=== PATIENT | female | born 1970 | race Caucasian/White ===

== ENCOUNTER 2024-12-17 02:19 | Inpatient (IN) | payer MEDICARE, MEDICAID ==
[~2024-12-17] VITALS: Ht 167.6 cm; Wt 68.4 kg
[2024-12-17 03:05] VITALS: PULSE 80; RESP 20; O2SAT 95
[2024-12-17] MEDS: LORazepam 2MG/ML-1ML VIAL IM ONE (03:10)
[2024-12-17] MEDS: LORazepam 2MG/ML-1ML VIAL IV ONE (03:11)
[2024-12-17] MEDS: SODIUM CHLORIDE 0.9% 1,000 ML IV ONE ×3 (03:11→05:33)
[2024-12-17 03:16] LABS: Hematocrit 41.0 % (36.0-46.0); Hemoglobin 13.7 g/dL (12.2-16.2); Mean Corpuscular Hemoglobin 30.1 pg (28.0-32.0); Mean Corpuscular Volume 90.0 fL (80.0-100.0); Nucleated Red Blood Cells % 0.1 %
[2024-12-17 03:44] LABS: Alanine Aminotransferase 17 U/L (7-40); Albumin 4.4 g/dL (3.2-4.8); Anion Gap 9 (5-15); BUN/Creatinine Ratio 16.0 (10.0-20.0); Blood Urea Nitrogen 15 mg/dL (9-23); Calcium 9.4 mg/dL (8.7-10.4); Carbon Dioxide 26 mmol/L (20-31); Chloride 99 mmol/L (98-107); Lipase 43 U/L (12-53); Magnesium 2.0 mg/dL (1.6-2.6); Potassium 4.1 mmol/L (3.5-5.1); Total Protein 8.0 g/dL (5.7-8.2)
[2024-12-17 03:45] LABS: Bilirubin, Total 0.5 mg/dL (0.2-1.0)
[2024-12-17 03:54] LABS: Alkaline Phosphatase 214 U/L (46-116); Sodium 134 mmol/L (136-145)
[2024-12-17] MEDS: ACCU-CHEK COMFORT CURVE STRIP VI STA (03:54)
[2024-12-17 03:55] LABS: Glucose 555 mg/dL (74-106)
[2024-12-17] MEDS ORDERED: DEXTROSE (50%) 50ML SYRG IV PRN ×3 (04:15→05:30)
--- NOTE | 2024-12-17 04:21 | ED.PDOC ---
History of Present Illness HPI Comments 54-year-old female, with a limited known history, is brought in by ambulance in restraints for chief complaint of altered mental status. Per EMS personnel report, law enforcement called after responding to bystanders spotting the patient screaming and displaying erratic behavior at a [employer] parking lot, this morning. Vitals were noted to have been stable and within normal limits, with the exception of the tachycardic heart rate in the 120s to 130s range and a blood glucose of 444. Patient is screaming, repeatedly, staff on leaving her alone and refusing to answer any further questions. 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 REVIEW OF SYSTEMS: General: No fever, no chills, HEENT: No neck pain, no blurred vision Cardiac: No chest pain. No palpitations. Lungs: No shortness of breath, GI: No abdominal pain, no vomiting Musculoskeletal: No joint pain , no back pain Skin: No rash, no wound Neuro: Altered mental status. No headache, no dizziness, no syncope PHYSICAL EXAM: General: Appears disheveled. Skin: Skin in warm, dry and intact without rashes or lesions. HEENT: The head is normocephalic and atraumatic. Conjunctivae are clear without exudates or hemorrhage. Sclera is non-icteric. Neck: Normal range of motion. No JVD. Cardiac: Regular rate Respiratory: No signs of respiratory distress. No Stridor. Extremities: Upper and lower extremities are atraumatic in appearance without deformity. Neurological: The patient is awake, alert and oriented x3. She is repeatedly yelling to staff on leaving her alone and refusing to answer questions. There is no facial asymmetry. Psychiatric: Appropriate mood and affect. Good judgement and insight. 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 Was a procedure done?: No Differential Dx Considerations may include: Differential diagnosis considered includes but not limited to intracranial hemorrhage, stroke, head injury, seizure, metabolic disturbance, electrolyte imbalance, infection, substance intoxication, psychiatric cause, other systemic illness, other X-Ray, Labs, Meds, VS Vital Signs Date Time Temp Pulse Resp B/P (MAP) Pulse Ox O2 Delivery O2 Flow Rate FiO2 12/17/24 04:00 88 18 112/74 (87) 95 12/17/24 03:05 80 20 95 Room Air* 0 21 12/17/24 02:36 97.9 80 20 98/52 (67) 95 97.9 12/17/24 02:31 97.6 86 24 118/70 97 97.6 Lab Test 12/17/24 05:00 12/17/24 03:54 12/17/24 03:04 12/17/24 03:03 Range/Units Urine Color Light-yellow Yellow Urine Clarity Clear Clear Urine pH 5.5 5.0-9.0 Urine Specific [place] 1.037 H 1.001-1.035 Urine Protein Negative Negative Urine Ketones Negative Negative Urine Blood Negative Negative /uL Urine Nitrite Negative Negative Urine Bilirubin Negative Negative Urine Urobilinogen Normal Negative mg/dL Urine Leukocyte Esterase Negative Negative /uL Urine RBC None seen 0 - 4 /hpf Urine Microscopic WBC 2 0-5 /HPF Urine Squamous Epithelial Cells None seen <5 /hpf Urine Bacteria None seen None Seen /hpf Urine Hyaline Casts Few 0 - 2 /lpf Urine Glucose 4+ H Normal mg/dL Urine Opiates Screen Neg NEGATIVE Urine Fentanyl Screen Neg NEGATIVE Urine Barbiturates Screen Neg NEGATIVE Urine Phencyclidine Screen Neg NEGATIVE Urine Amphetamines Screen Pos NEGATIVE Urine Benzodiazepines Screen Neg NEGATIVE Urine Cocaine Screen Neg NEGATIVE Urine Cannabinoids Screen Neg NEGATIVE POC Glucose 477 *H 70-106 mg/dl Blood Gas Specimen Type Venous Blood Gas Sample Site Vbg - n/a Blood Gas Patient Temperature 37.0 Arterial Blood Date Drawn [id number] Juan Test N/a Venous Blood pH 7.378 7.320-7.430 Venous Blood pCO2 at Patient Temp 45.2 38.0-54.0 mmHg Venous Blood pO2 at Patient Temp 38.9 23.0-48.0 mmHg Venous Blood HCO3 26.0 22.0-29.0 mmol/L Venous Blood Base Excess 0.5 -2.0-3.0 mmol/L Blood Gas Liter Flow 0.00 Blood Gas Modality Vbg - n/a Blood Gas Spontaneous Rate 22 FiO2 % 21.0 Specimen Drawn By Seun thurman rn White Blood Count 7.3 4.4-10.8 10^3/uL Red Blood Count 4.56 4.0-5.20 10^6/uL Hemoglobin 13.7 12.2-16.2 g/dL Hematocrit 41.0 36.0-46.0 % Mean Corpuscular Volume 90.0 80.0-100.0 fL Mean Corpuscular Hemoglobin 30.1 28.0-32.0 pg Mean Corpuscular Hemoglobin Concent 33.5 32.0-36.0 g/dL Red Cell Distribution Width 15.5 H 11.8-14.3 % Platelet Count 284 140-450 10^3/uL Mean Platelet Volume 7.1 6.9-10.8 fL Neutrophils (%) (Auto) 48.8 37.0-80.0 % Lymphocytes (%) (Auto) 38.6 10.0-50.0 % Monocytes (%) (Auto) 10.9 0.0-12.0 % Eosinophils (%) (Auto) 1.5 0.0-7.0 % Basophils (%) (Auto) 0.2 0.0-2.0 % Neutrophils # (Auto) 3.6 1.6-8.6 10 ^3/uL Lymphocytes # (Auto) 2.8 0.4-5.4 10 ^3/uL Monocytes # (Auto) 0.8 0-1.3 10 ^3/uL Eosinophils # (Auto) 0.1 0-0.8 10 ^3/uL Basophils # (Auto) 0 0-0.2 10 ^3/uL Nucleated Red Blood Cells 0.1 % Sodium Level 134 L 136-145 mmol/L Potassium Level 4.1 3.5-5.1 mmol/L Chloride Level 99 98-107 mmol/L Carbon Dioxide Level 26 20-31 mmol/L Anion Gap 9 5-15 Blood Urea Nitrogen 15 9-23 mg/dL Creatinine 0.94 0.550-1.02 mg/dL Glomerular Filtration Rate Calc 73 >90 mL/min BUN/Creatinine Ratio 16.0 10.0-20.0 Serum Glucose 555 *H 74-106 mg/dL Hemoglobin A1c 11.2 H <5.7 % A1C Lactic Acid Level 1.8 0.4-2.0 mmol/L Calcium Level 9.4 8.7-10.4 mg/dL Magnesium Level 2.0 1.6-2.6 mg/dL Total Bilirubin 0.5 0.2-1.0 mg/dL Aspartate Amino Transferase (AST) 24 13-40 U/L Alanine Aminotransferase (ALT) 17 7-40 U/L Alkaline Phosphatase 214 H 46-116 U/L B-Type Natriuretic Peptide 20.02 0-100 pg/mL Total Protein 8.0 5.7-8.2 g/dL Albumin 4.4 3.2-4.8 g/dL Lipase 43 12-53 U/L Plasma/Serum Blood Alcohol < 3.0 <10 mg/dL Hepatitis A IgM Antibody Negative Hepatitis B Surface Antigen Negative Negative Hepatitis B Core IgM Antibody Negative Negative Hepatitis C Antibody Negative Negative Time of 1ST Reevaluation: 03:10 Reevaluation 1ST: Unchanged Patient Education/Counseling: Treatment, Other (Need for ED observation) Family Education/Counseling: No Family Present SEPSIS Sepsis Screen Date sepsis recognized/suspect: Dec 17, 2024 Time Sepsis recognized/suspect: 030 Recent Procedure: No On Antibiotic Therapy: No Respiratory Rate >20: No Heart Rate >90: No Temp<36 C (96.8 F) or >38.3 C: No SBP <90 or MAP <65 mmHG: No New Acute Mental Status Change: Yes Is the patient on CPAP, BIPAP,: No Physician Orders Saline Lock (12/17/24 02:44) Venous Blood Gas (12/17/24 02:44) R Wrist 3+ View Xray (12/17/24 03:15) Vital Signs Date Time Temp Pulse Resp B/P (MAP) Pulse Ox O2 Delivery O2 Flow Rate FiO2 12/17/24 04:00 88 18 112/74 (87) 95 12/17/24 03:05 80 20 95 Room Air* 0 21 12/17/24 02:36 97.9 80 20 98/52 (67) 95 97.9 12/17/24 02:31 97.6 86 24 118/70 97 97.6 Laboratory Tests Test 12/17/24 03:03 Lactic Acid Level 1.8 mmol/L (0.4-2.0) White Blood Count 7.3 10^3/uL (4.4-10.8) Departure 1 Departure Time of Disposition: 05:10 Impression: Primary Impression: Altered mental status Additional Impression: Hyperglycemia Disposition: ADMITTED INPATIENT Condition: Serious Comments MDM: Patient admitted to hospitalist service for further treatment, evaluation and monitoring. Extensive evaluation was performed in attempt to identify or rule out: (See dif ferential diagnosis section) The following tests were ordered, and results were reviewed by me and discussed with patient: (See diagnostic results section) Additional information was gathered from interviewing the following independent historians: EMS personnel Decision regarding hospitalization or escalation of hospital level of care: Risk and benefits of admission for further treatment of patient's condition was considered. Due to patient's current clinical condition, high risk of decline and poor outcome if discharged and need for further inpatient management and monitoring, patient will be admitted to the hospital. Critical Care Note Critical Care Time?: No Stability Stability form required: No Heart Score Heart Score: Heart Score Response (Comments) Value History N/A 0 EKG N/A 0 Age N/A 0 Risk Factors N/A 0 Troponin N/A 0 Total 0 I personally scribed for DELONTE AMBROSIO MD ([email or web address]) on 12/17/24 at 04:21. Electronically submitted by Graeme Resendez ([email or web address]). DELONTE AMBROSIO MD Dec 17, 2024 04:21
[2024-12-17] MEDS: InsuLIN REG 1unit/0.01ml Soln (100units/ml) IV ONE (04:40)
--- NOTE | 2024-12-17 04:58 | DVH ---
CLINICAL INDICATION: Right wrist pain TECHNIQUE: 2 views XY R WRIST 3+ VIEW XRAY Comparison: None FINDINGS: No appreciable fracture or acute joint malalignment. Joint spaces are preserved. Osseous mineralizat ion is normal. Circumferential soft tissue swelling. IMPRESSION: 1. Soft tissue swelling without acute osseous finding of the right wrist, correlate with history and physical exam. If there is concern for occult fracture, follow-up radiographs recommended in - ys.
[2024-12-17 05:29] LABS: Urine Protein, UAD Negative (Negative)
[2024-12-17] MEDS ORDERED: NITROGLYCERIN 0.4 MG SL TAB SL PRN (05:30)
[2024-12-17] MEDS ORDERED: MORPHINE SULFATE INJ 2 MG/ml SYRG IV PRN (05:30)
[2024-12-17] MEDS ORDERED: ACETAMINOPHEN 325 MG TAB PO PRN (05:30)
[2024-12-17] MEDS ORDERED: DOCUSATE SOD 100 MG CAP PO PRN (05:30)
[2024-12-17] MEDS ORDERED: ONDANSETRON HCL 4 MG/2 ML VIAL IV PRN (05:30)
--- NOTE | 2024-12-17 05:30 | DVHHP2 ---
History of Present Illness Reason for Visit: Altered level of consciousness History of Present Illness The patient is a 54-year-old female unkempt with unknown past medical history presented to [facility] ED for evaluation of altered mental status. As reported by EMS, law enforcement called after responding to bystanders spotting the patient screaming and displaying erratic behavior at a [employer] parking lot, this morning. Patient is screaming, repeatedly on staff to leaving her alone and refusing to answer any further questions. 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 Patient was seen and evaluated in the ED, laboratory data shows WBC 7.3, platelets 284, sodium 134, potassium 4.1, BUN 15, creatinine 0.94, GFR 73, glucose 555, calcium 9.4, BNP 20.02, lipase 43, serum alcohol < 3.0, positive amphetamines. Head CT results pending; right wrist x-ray revealing soft tissue swelling without acute osseous finding of the right wrist, correlate with history and physical exam; if there is concern for occult fracture, follow-up radiography recommendation in 10-14 days. Please see medication orders section in the computer. On my assessment, patient remains altered, no diaphoresis, shortness of breaths, no diarrhea, nausea, vomiting, fever, no chills. Patient was admitted for further evaluation and medical management. Past Medical History Unknown Past Surgical History Unknown Family History Reviewed, noncontributory to the management of this case. Past Social History Uses amphetamines Review of Systems Constitutional: Yes: Weakness; No: Fever, Chills, Sweats, Malaise, Other Eyes: No: Pain, Vision change, Conjunctivae inflammation, Eyelid inflammation, Other, Redness ENT: No: Ear pain, Ear discharge, Nose pain, Nose discharge, Nose congestion, Mouth pain, Mouth swelling, Throat pain, Throat swelling, Other Respiratory: No: Cough, Dry, Shortness of breath, SOB with excertion, Wheezing, Hemoptysis, Pleuritic Pain, Sputum, Wheezing, Other Cardiovascular: No: Chest Pain, Palpitations, Orthopnea, Paroxysmal Noc. Dyspnea, Edema, Lt Headedness, Other Gastrointestinal: No: Nausea, Vomiting, Abdominal Pain, Diarrhea, Constipation, Melena, Hematochezia, Other Genitourinary: No Dysuria, No Frequency, No Incontinence, No Hematuria, No Retention, No Other Musculoskeletal: No: other, neck pain, shoulder pain, arm pain, back pain, hand pain, leg pain, foot pain Skin: No: Rash, Lesions, Jaundice, Bruising, Other Neurological: Confusion, Other (Altered level of consciousness); No: Weakness, Numbness, Incoordination, Change in speech, Seizures Allergies: Coded Allergies: Penicillins (Verified Allergy, Intermediate, 12/17/24) Skin reactions Medications Current Medications Medications Dose Ordered Sig/Roberto Route Start Time Stop Time Status Last Admin Dose Admin Dextrose 50 ml PRN PRN IV 12/17/24 04:15 Dextrose 50 ml PRN PRN IV 12/17/24 04:15 Exam Vital Signs Vital Signs Date Time Temp Pulse Resp B/P (MAP) Pulse Ox O2 Delivery O2 Flow Rate FiO2 12/17/24 04:00 88 18 112/74 (87) 95 12/17/24 03:05 Room Air* 0 21 12/17/24 02:36 97.9 97.9 General Appearance: Alert, No acute distress, Other (Oriented x1) HEENT: Atraumatic, PERRLA, EOMI, Mucous membr. moist/pink Respiratory: Normal air movement Cardiovascular: Regular rate, Normal S1, Normal S2, No murmurs Abdominal: Normal bowel sounds, Soft, No tenderness, No hepatospenomegaly, No masses Extremities: No clubbing, No cyanosis, No edema, Normal pulses, No tenderness/swelling Skin: No rashes, No significant lesion Neuro: Normal tone, Reflexes 2+, Other (Generalized weakness) Psych/Mental Status: Mood NL, Other (Altered mental status) Labs/Xrays Labs Test 12/17/24 05:00 12/17/24 03:54 12/17/24 03:04 12/17/24 03:03 Range/Units POC Glucose 477 *H 70-106 mg/dl Blood Gas Specimen Type Venous Blood Gas Sample Site Vbg - n/a Blood Gas Patient Temperature 37.0 Arterial Blood Date Drawn [id number] Juan Test N/a Venous Blood pH 7.378 7.320-7.430 Venous Blood pCO2 at Patient Temp 45.2 38.0-54.0 mmHg Venous Blood pO2 at Patient Temp 38.9 23.0-48.0 mmHg Venous Blood HCO3 26.0 22.0-29.0 mmol/L Venous Blood Base Excess 0.5 -2.0-3.0 mmol/L Blood Gas Liter Flow 0.00 Blood Gas Modality Vbg - n/a Blood Gas Spontaneous Rate 22 FiO2 % 21.0 Specimen Drawn By Seun thurman rn White Blood Count 7.3 4.4-10.8 10^3/uL Red Blood Count 4.56 4.0-5.20 10^6/uL Hemoglobin 13.7 12.2-16.2 g/dL Hematocrit 41.0 36.0-46.0 % Mean Corpuscular Volume 90.0 80.0-100.0 fL Mean Corpuscular Hemoglobin 30.1 28.0-32.0 pg Mean Corpuscular Hemoglobin Concent 33.5 32.0-36.0 g/dL Red Cell Distribution Width 15.5 H 11.8-14.3 % Platelet Count 284 140-450 10^3/uL Mean Platelet Volume 7.1 6.9-10.8 fL Neutrophils (%) (Auto) 48.8 37.0-80.0 % Lymphocytes (%) (Auto) 38.6 10.0-50.0 % Monocytes (%) (Auto) 10.9 0.0-12.0 % Eosinophils (%) (Auto) 1.5 0.0-7.0 % Basophils (%) (Auto) 0.2 0.0-2.0 % Neutrophils # (Auto) 3.6 1.6-8.6 10 ^3/uL Lymphocytes # (Auto) 2.8 0.4-5.4 10 ^3/uL Monocytes # (Auto) 0.8 0-1.3 10 ^3/uL Eosinophils # (Auto) 0.1 0-0.8 10 ^3/uL Basophils # (Auto) 0 0-0.2 10 ^3/uL Nucleated Red Blood Cells 0.1 % Sodium Level 134 L 136-145 mmol/L Potassium Level 4.1 3.5-5.1 mmol/L Chloride Level 99 98-107 mmol/L Carbon Dioxide Level 26 20-31 mmol/L Anion Gap 9 5-15 Blood Urea Nitrogen 15 9-23 mg/dL Creatinine 0.94 0.550-1.02 mg/dL Glomerular Filtration Rate Calc 73 >90 mL/min BUN/Creatinine Ratio 16.0 10.0-20.0 Serum Glucose 555 *H 74-106 mg/dL Lactic Acid Level 1.8 0.4-2.0 mmol/L Calcium Level 9.4 8.7-10.4 mg/dL Magnesium Level 2.0 1.6-2.6 mg/dL Total Bilirubin 0.5 0.2-1.0 mg/dL Aspartate Amino Transferase (AST) 24 13-40 U/L Alanine Aminotransferase (ALT) 17 7-40 U/L Alkaline Phosphatase 214 H 46-116 U/L B-Type Natriuretic Peptide 20.02 0-100 pg/mL Total Protein 8.0 5.7-8.2 g/dL Albumin 4.4 3.2-4.8 g/dL Lipase 43 12-53 U/L Plasma/Serum Blood Alcohol < 3.0 <10 mg/dL PATIENT: JUSTIN GARCIA ACCT: [id number] UNIT: [id number] : 1970 LOC: ER ROOM / BED: / AGE / SEX: 54 / F ADM STATUS: REG ER SERVICE 4 ORDERING PHYSICIAN: DELONTE AMBROSIO MD PROCEDURE(s): RWRI - R WRIST 3+ VIEW XRAY REASON: Right wrist pain ORDER NUMBER(s): [id number], ACCESSION NUMBER(s): [id number] CLINICAL INDICATION: Right wrist pain TECHNIQUE: 2 views XY R WRIST 3+ VIEW XRAY Comparison: None FINDINGS: No appreciable fracture or acute joint malalignment. Joint spaces are preserved. Osseous mineralization is normal. Circumferential soft tissue swelling. IMPRESSION: 1. Soft tissue swelling without acute osseous finding of the right wrist, correlate with history and physical exam. If there is concern for occult fracture, follow-up radiographs recommended in 10-[address] reports pending. SEPSIS Sepsis Screen Date sepsis recognized/suspect: Dec 17, 2024 Time Sepsis recognized/suspect: 0300 Recent Procedure: No On Antibiotic Therapy: No Respiratory Rate >20: No Heart Rate >90: No Temp<36 C (96.8 F) or >38.3 C: No SBP <90 or MAP <65 mmHG: No New Acute Mental Status Change: Yes Is the patient on CPAP, BIPAP,: No Physician Orders Drug Screen (12/17/24 02:44) Urinalysis (12/17/24 02:44) Saline Lock (12/17/24 02:44) Insert Cantu Catheter QSHIFT (12/17/24 02:44) Venous Blood Gas (12/17/24 02:44) R Wrist 3+ View Xray (12/17/24 03:15) Dextrose 50% Syringe (12/17/24 04:15) Dextrose 50% Syringe (12/17/24 04:15) Glucose Blood (Accu-Chek Comfort Curve T (12/17/24 21:15) Sodium Chloride 0.9% (12/17/24 04:15) Hemoglobin A1c (12/17/24 05:17) Glucose Blood (Accu-Chek Comfort Curve T (12/17/24 08:00) Moderate Insulin Ss (12/17/24 08:00) Dextrose 50% Syringe (12/17/24 05:30) Admit (12/17/24 05:17) Allergies (12/17/24 05:17) Code Status (12/17/24 05:17) 0.9% Ns 1000 Ml (12/17/24 05:30) Oxygen Per Hour (12/17/24 05:17) Hydrocodone-Acet 5/325mg Tab (Manson 5/32 (12/17/24 05:30) Ondansetron Hcl (Zofran) (12/17/24 05:30) Docusate Sodium Capsule (Colace Capsule) (12/17/24 05:30) Fall Risk Precautions In Place QSHIFT (12/17/24 05:17) Complete Blood Count (12/18/24 04:00) Comprehensive Metabolic Panel (12/18/24 04:00) Condition: Serious (12/17/24 05:17) Acetaminophen Tablet (Tylenol Tablet) (12/17/24 05:30) Clear Liq Diet (12/17/24 Breakfast) Maintain Bed Rest (12/17/24 05:17) Sequential Compression Device (12/17/24 ) Nitroglycerin Sublingual (Ntrostat Subli (12/17/24 05:30) Morphine Sulfate Injection (12/17/24 05:30) Stat Ekg For Chest Pain (12/17/24 05:17) Notify Md Of Changes From Base (12/17/24 05:17) Gold And Silver Assayer For 24 Hours (12/17/24 05:17) Emergency Dysrhythmia Protocol (12/17/24 05:17) Rhythm Strips Once Every Shift (12/17/24 05:17) Oxygen By Nasal Cannula (12/17/24 05:17) Head Without Contrast (12/17/24 05:17) Vital Signs Date Time Temp Pulse Resp B/P (MAP) Pulse Ox O2 Delivery O2 Flow Rate FiO2 12/17/24 04:00 88 18 112/74 (87) 95 12/17/24 03:05 80 20 95 Room Air* 0 21 12/17/24 02:36 97.9 80 20 98/52 (67) 95 97.9 12/17/24 02:31 97.6 86 24 118/70 97 97.6 Laboratory Tests Test 12/17/24 03:03 Lactic Acid Level 1.8 mmol/L (0.4-2.0) White Blood Count 7.3 10^3/uL (4.4-10.8) Medications Medications Dose Ordered Sig/Roberto Route Start Time Stop Time Status Last Admin Dose Admin Diagnostic Test (Pha) 1 strip ONCE STAT 12/17/24 04:14 12/17/24 04:23 DC 12/17/24 03:54 1 STRIP Insulin Human Regular 6 units ONCE ONCE IV 12/17/24 04:15 12/17/24 04:23 DC 12/17/24 04:40 6 UNITS Lorazepam 1 mg ONCE ONCE IV 12/17/24 03:15 12/17/24 03:16 DC 12/17/24 03:11 1 MG Sodium Chloride 1,000 ml @ 1,000 mls/hr Q1H ONCE IV 12/17/24 02:45 12/17/24 03:44 DC 12/17/24 03:11 1,000 MLS/HR Sodium Chloride 1,000 ml @ 1,000 mls/hr Q1H ONCE IV 12/17/24 04:15 12/17/24 05:14 DC 12/17/24 04:41 1,000 MLS/HR Assessment/Plan Assessment/Plan Altered mental status Hyperglycemia Hyponatremia Amphetamine use Generalized weakness Plan 1. Admit to telemetry unit 2. Breathing treatment 3. Pain control management 4. Management of fluids and electrolytes 5. Consultation for hospitalist 6. Diagnostic tests head CT 7. DVT prophylaxis-on SCDs 8. Repeat labs CBC, CMP in a.m. 9. Continue with current medical management 10. Treatment plan discussed with patient and RN. Patient verbalized understanding. Plan discussed with: Patient, Other (RN) My Orders Orders - MARGARET JAIN DNP Procedure Category Date Status Time Hemoglobin A1c LAB 12/17/24 Transmitted 05:17 Glucose Blood PHA 12/17/24 Transmitted (Accu-Chek Comfort 08:00 Moderate Insulin Ss PHA 12/17/24 Transmitted 08:00 Dextrose 50% Syringe PHA 12/17/24 Transmitted 05:30 Admit ADMIT 12/17/24 Transmitted 05:17 Allergies NINA 12/17/24 Transmitted 05:17 Code Status CODE 12/17/24 Transmitted 05:17 0.9% Ns 1000 Ml PHA 12/17/24 Transmitted 05:30 Oxygen Per Hour RT 12/17/24 Transmitted 05:17 Hydrocodone-Acet PHA 12/17/24 Transmitted 5/325mg Tab (Manson 05:30 Ondansetron Hcl PHA 12/17/24 Transmitted (Zofran) 05:30 Docusate Sodium PHA 12/17/24 Transmitted Capsule (Colace 05:30 Fall Risk Precautions [facility] 12/17/[address] 05:17 Complete Blood Count LAB 12/18/24 Verified 04:00 Comprehensive LAB 12/18/24 Verified Metabolic Panel 04:00 Condition: Serious NINA 12/17/24 Transmitted 05:17 Acetaminophen Tablet [facility] 12/17/24 Transmitted (Tylenol Tablet) 05:30 Clear Liq Diet DIET 12/17/24 Transmitted Breakfast Maintain Bed Rest [facility] 12/17/24 Transmitted 05:17 Sequential [facility] 12/17/24 Transmitted Compression Device Nitroglycerin [facility] 12/17/24 Transmitted Sublingual (Ntrostat 05:30 Morphine Sulfate PHA 12/17/24 Transmitted Injection 05:30 Stat Ekg For Chest [facility] 12/17/24 Transmitted Pain 05:17 Notify Md Of Changes [facility] 12/17/24 Transmitted From Base 05:17 Gold And Silver Assayer For NINA 12/17/24 Transmitted 24 Hours 05:17 Emergency Dysrhythmia [facility] 12/17/24 Transmitted Protocol 05:17 Rhythm Strips Once NINA 12/17/24 Transmitted Every Shift 05:17 Oxygen By Nasal RT 12/17/24 Transmitted Cannula 05:[address] 12/17/24 Transmitted 05:17 Problem List: (1) Altered mental status (2) Hyperglycemia (3) Hyponatremia (4) Amphetamine use (5) Generalized weakness Date of Service: Dec 17, 2024 Billing Provider: MARGARET JAIN DNP Common Visit Codes: [id number] INP/OBS CARE (HIGH) MARGARET JAIN DNP Dec 17, 2024 05:30
[2024-12-17] MEDS: SODIUM CHLORIDE 0.9% 1,000 ML IV SCH (05:34)
[2024-12-17 05:40] LABS: Amphetamine Screen, Urine Pos (NEGATIVE)
[2024-12-17 05:41] LABS: Barbiturate Scree,Urine Neg (NEGATIVE); Benzodiazephine Screen, Urine Neg (NEGATIVE); Cannabinoid Screen, Urine Neg (NEGATIVE); Cocaine Screen, Urine Neg (NEGATIVE); Opiate Scree,Urine Neg (NEGATIVE); Phencyclidine Screen, Urine Neg (NEGATIVE)
--- NOTE | 2024-12-17 06:30 | DVH ---
EXAM: CT HEAD WITHOUT CONTRAST INDICATION: Altered level of consciousness. TECHNIQUE: CT of the head without intravenous contrast. Coronal and sagittal reformatted images are s ubmitted. Radiation Dose : 1. Head: CT Dose: CTDI volume is 56.36 mGy. Dose-length product is 996.3 mGy*cm The dose indicators for CT are the volume Computed Tomography (CT) Dose Index (CTDIvol) and the Dose Length Product (DLP), and are measured in units of mGy and mGy-cm, respectively. These indicators are not patient dose, but values generated from the CT scanner acquisition factors. The report includes radiation exposure data for exposures received during this examination. All CT scans at this medical facility are performed using dose modulation techniques as appropriate to a performed exam including the following: Automated exposure control was utilized; adjustment of the MA and/or KV according to patient size; and use of iterative reconstruction technique. COMPARISON: None FINDINGS: There is no evidence of acute intracranial hemorrhage, extra-axial collection, mass effect, midline s hift, herniation or hydrocephalus. The ventricles, sulci and cisterns are age appropriate. The maldonado-white differentiation is intact. There is opacification of the left mastoid air cells. The right mastoid air cells are clear. There i s mucosal thickening in the right ethmoid air cells. No depressed calvarial fracture. The surrounding soft tissues are unremarkable. IMPRESSION: 1. No evidence of acute intracranial abnormality.
[2024-12-17] MEDS: ACCU-CHEK COMFORT CURVE STRIP VI SCH (08:00)
[2024-12-17] MEDS: InsuLIN REG 1unit/0.01ml Soln (100units/ml) SC SCH (08:53)
--- NOTE | 2024-12-17 12:07 | DVHPN2 ---
Progress Note Date Seen: Dec 17, 2024 Medical Necessity Reason Pt with a Central, PICC or Fol: No Subjective Patient reports: No new complaints Review of Systems: HEENT:Normal, CVS:Normal, RESPIRATORY:Normal, GI:Normal, :Normal, MSK:Normal, NEURO:Normal Objective vital signs Vital Sign Date Time Temp Pulse Resp B/P (MAP) Pulse Ox O2 Delivery O2 Flow Rate FiO2 12/17/24 10:00 81 20 113/72 (86) 97 12/17/24 08:00 97.7 97.7 12/17/24 03:05 Room Air* 0 21 Total Intake and Output 12/16/24 12/16/24 12/17/24 15:00 23:00 07:00 Intake Total 3000 ml Output Total 350 ml Balance 2650 ml medications Current Medications Medications Dose Ordered Sig/Roberto Route Start Time Stop Time Status Last Admin Dose Admin Diagnostic Test (Pha) 1 strip IQ4HR 12/17/24 08:00 12/17/24 08:00 1 STRIP Insulin Human Regular IQ4HR SC 12/17/24 08:00 12/17/24 08:53 12 UNITS Dextrose 50 ml UD PRN IV 12/17/24 05:30 Sodium Chloride 1,000 ml @ 120 mls/hr Q8H20M IV 12/17/24 05:30 12/17/24 05:34 120 MLS/HR Acetaminophen/ Hydrocodone Bitart 1 tab Q4HP PRN PO 12/17/24 05:30 Ondansetron HCl 4 mg Q4HP PRN IV 12/17/24 05:30 Docusate Sodium 100 mg BIDPRN PRN PO 12/17/24 05:30 Acetaminophen 650 mg Q6HP PRN PO 12/17/24 05:30 Nitroglycerin 0.4 mg Q5MINP PRN SL 12/17/24 05:30 Morphine Sulfate 2 mg Q30M PRN IV 12/17/24 05:30 Examination: GENERAL:Normal, HEENT:Normal, NECK:Normal, LUNGS:Normal, CVS:Normal, ABDOMEN:Normal, MSK:Normal, SKIN:Normal, NEURO:Normal, :Normal laboratory and microbiology Laboratory Tests 12/17/24 03:03 Test 12/17/24 03:03 Range/Units Serum Glucose 555 *H 74-106 mg/dL Problem List/Assessment/Plan Problem List/Assessment/Plan #1 encephalopathy- toxic/metabolic #2 drug abuse with amphetamines #3 uncontrolled dm: ssi, ivf #4 right wrist swelling Plan discussed with: Patient My Orders My Orders Orders - WENDIE BUNCH MD Procedure Category Date Status Time Consistent DIET 12/17/24 Transmitted Carb([facility])Diabetes Lunch Thiamine Inj PHA 12/17/24 Transmitted 12:15 Thiamine Inj PHA 12/18/24 Verified 10:00 Lorazepam 2mg/Ml Inj PHA 12/17/24 Verified (Ativan Inj) 12:15 Complete Blood Count LAB 12/18/24 Verified 06:00 Comprehensive LAB 12/18/24 Verified Metabolic Panel 06:00 Magnesium LAB 12/18/24 Verified 05:00 Phosphorus LAB 12/18/24 Verified 06:00 Chest Portable XY 12/17/24 Verified 12:02 Acute Hepatitis Panel LAB 12/17/24 Verified 12:02 Date of Service: Dec 17, 2024 Billing Provider: WENDIE BUNCH MD Common Visit Codes: [id number] INP/OBS CARE(HIGH) WENDIE BUNCH MD Dec 17, 2024 12:07
[2024-12-17] MEDS ORDERED: LORazepam 2MG/ML-1ML VIAL IV PRN (12:15)
[2024-12-17] MEDS: THIAMINE 100mg/ml INJ (200mg/2ml VIAL) IV ONE (12:15)
[2024-12-17 13:01] LABS: Hepatitis B Surface Antigen Negative (Negative)
[2024-12-17 13:13] LABS: Hepatitis C Antibody Negative (Negative)
[2024-12-17 16:17] VITALS: BP 113/79; PULSE 86; O2SAT 99
[2024-12-17] MEDS: ACCU-CHEK COMFORT CURVE STRIP VI ONE (21:10)
[2024-12-18] MEDS: HYDROcodone-ACET 5/325MG TAB PO PRN (01:39)
[2024-12-18 08:30] VITALS: RESP 14
[2024-12-18] MEDS: THIAMINE 100mg/ml INJ (200mg/2ml VIAL) IV SCH (09:05)
--- NOTE | 2024-12-18 11:39 | DVHPN2 ---
Progress Note Date Seen: Dec 18, 2024 Medical Necessity Reason Pt with a Central, PICC or Fol: No Subjective Patient reports: No new complaints Review of Systems: HEENT:Normal, CVS:Normal, RESPIRATORY:Normal, GI:Normal, :Normal, MSK:Normal, NEURO:Normal Objective vital signs Vital Sign Date Time Temp Pulse Resp B/P (MAP) Pulse Ox O2 Delivery O2 Flow Rate FiO2 12/18/24 08:30 14 Room Air* 0 21 12/17/24 16:17 86 113/79 (90) 99 12/17/24 08:00 97.7 97.7 Total Intake and Output 12/17/24 12/17/24 12/18/24 15:00 23:00 07:00 Intake Total 120 ml 240 ml 850 ml Output Total 1600 ml 1500 ml Balance 120 ml -1360 ml -650 ml medications Current Medications Medications Dose Ordered Sig/Roberto Route Start Time Stop Time Status Last Admin Dose Admin Diagnostic Test (Pha) 1 strip IQ4HR 12/17/24 08:00 12/17/24 16:17 1 STRIP Insulin Human Regular IQ4HR SC 12/17/24 08:00 12/17/24 08:53 12 UNITS Dextrose 50 ml UD PRN IV 12/17/24 05:30 Sodium Chloride 1,000 ml @ 120 mls/hr Q8H20M IV 12/17/24 05:30 12/17/24 05:34 120 MLS/HR Acetaminophen/ Hydrocodone Bitart 1 tab Q4HP PRN PO 12/17/24 05:30 12/18/24 08:57 1 TAB Ondansetron HCl 4 mg Q4HP PRN IV 12/17/24 05:30 Docusate Sodium 100 mg BIDPRN PRN PO 12/17/24 05:30 Acetaminophen 650 mg Q6HP PRN PO 12/17/24 05:30 Nitroglycerin 0.4 mg Q5MINP PRN SL 12/17/24 05:30 Morphine Sulfate 2 mg Q30M PRN IV 12/17/24 05:30 Thiamine HCl 100 mg DAILY IV 12/18/24 10:00 Lorazepam 1 mg Q6HP PRN IV 12/17/24 12:15 Examination: GENERAL:Normal, HEENT:Normal, NECK:Normal, LUNGS:Normal, CVS:Normal, ABDOMEN:Normal, MSK:Normal, SKIN:Normal, NEURO:Normal, NEURO:Abnormal (agitated, cussing), :Normal laboratory and microbiology Laboratory Tests 12/17/24 03:03 Test 12/17/24 03:03 Range/Units Serum Glucose 555 *H 74-106 mg/dL Problem List/Assessment/Plan Problem List/Assessment/Plan #1 encephalopathy- toxic/metabolic #2 drug abuse with amphetamines #3 uncontrolled dm: ssi, ivf #4 right wrist swelling #5 ?schizophrenia refusing medications/tests- refusing to speak to staff and me. ? 51/50 hold Plan discussed with: Patient My Orders My Orders Orders - WENDIE BUNCH MD Procedure Category Date Status Time Consistent DIET 12/17/24 Transmitted Carb(Ccho)Diabetes Lunch Thiamine Inj PHA 12/18/24 In Process 10:00 Lorazepam 2mg/Ml Inj PHA 12/17/24 In Process (Ativan Inj) 12:15 * Dukey Rider CONS 12/17/24 Transmitted Consult 17:09 Mrsa Screen ZOHAIB 12/17/24 In Process 17:20 *Tele Psych Consult CONS 12/18/24 Transmitted 09:58 Transfer Orders XFER 12/18/24 Transmitted 10:57 Date of Service: Dec 18, 2024 Billing Provider: WENDIE BUNCH MD Common Visit Codes: [id number] INP/OBS CARE(HIGH) WENDIE BUNCH MD Dec 18, 2024 11:39
--- NOTE | 2024-12-18 12:19 | DVHINCON2 ---
Date of Service if different f: Dec 18, 2024 Time of Service: 12:16 Consultation ([facility]) Consulting Physician: WENDIE BUNCH MD Labs Laboratory Tests Test 12/17/24 03:03 12/17/24 03:04 12/17/24 05:00 12/17/24 05:53 White Blood Count 7.3 10^3/uL (4.4-10.8) Red Blood Count 4.56 10^6/uL (4.0-5.20) Hemoglobin 13.7 g/dL (12.2-16.2) Hematocrit 41.0 % (36.0-46.0) Mean Corpuscular Volume 90.0 fL (80.0-100.0) Mean Corpuscular Hemoglobin 30.1 pg (28.0-32.0) Mean Corpuscular Hemoglobin Concent 33.5 g/dL (32.0-36.0) Red Cell Distribution Width 15.5 % (11.8-14.3) Platelet Count 284 10^3/uL (140-450) Mean Platelet Volume 7.1 fL (6.9-10.8) Neutrophils (%) (Auto) 48.8 % (37.0-80.0) Lymphocytes (%) (Auto) 38.6 % (10.0-50.0) Monocytes (%) (Auto) 10.9 % (0.0-12.0) Eosinophils (%) (Auto) 1.5 % (0.0-7.0) Basophils (%) (Auto) 0.2 % (0.0-2.0) Neutrophils # (Auto) 3.6 10 ^3/uL (1.6-8.6) Lymphocytes # (Auto) 2.8 10 ^3/uL (0.4-5.4) Monocytes # (Auto) 0.8 10 ^3/uL (0-1.3) Eosinophils # (Auto) 0.1 10 ^3/uL (0-0.8) Basophils # (Auto) 0 10 ^3/uL (0-0.2) Nucleated Red Blood Cells 0.1 % Sodium Level 134 mmol/L (136-145) Potassium Level 4.1 mmol/L (3.5-5.1) Chloride Level 99 mmol/L (98-107) Carbon Dioxide Level 26 mmol/L (20-31) Anion Gap 9 (5-15) Blood Urea Nitrogen 15 mg/dL (9-23) Creatinine 0.94 mg/dL (0.550-1.02) Glomerular Filtration Rate Calc 73 mL/min (>90) BUN/Creatinine Ratio 16.0 (10.0-20.0) Serum Glucose 555 mg/dL (74-106) Hemoglobin A1c 11.2 % A1C (<5.7) Lactic Acid Level 1.8 mmol/L (0.4-2.0) Calcium Level 9.4 mg/dL (8.7-10.4) Magnesium Level 2.0 mg/dL (1.6-2.6) Total Bilirubin 0.5 mg/dL (0.2-1.0) Aspartate Amino Transf (AST/SGOT) 24 U/L (13-40) Alanine Aminotransferase (ALT/SGPT) 17 U/L (7-40) Alkaline Phosphatase 214 U/L (46-116) B-Type Natriuretic Peptide 20.02 pg/mL (0-100) Total Protein 8.0 g/dL (5.7-8.2) Albumin 4.4 g/dL (3.2-4.8) Lipase 43 U/L (12-53) Plasma/Serum Blood Alcohol < 3.0 mg/dL (<10) Hepatitis A IgM Antibody Negative Hepatitis B Surface Antigen Negative (Negative) Hepatitis B Core IgM Antibody Negative (Negative) Hepatitis C Antibody Negative (Negative) Blood Gas Specimen Type Venous Blood Gas Sample Site Vbg - n/a Blood Gas Patient Temperature 37.0 Arterial Blood Date Drawn [id number] Juan Test N/a Venous Blood pH 7.378 (7.320-7.430) Venous Blood pCO2 at Patient Temp 45.2 mmHg (38.0-54.0) Venous Blood pO2 at Patient Temp 38.9 mmHg (23.0-48.0) Venous Blood HCO3 26.0 mmol/L (22.0-29.0) Venous Blood Base Excess 0.5 mmol/L (-2.0-3.0) Blood Gas Liter Flow 0.00 Blood Gas Modality Vbg - n/a Blood Gas Spontaneous Rate 22 FiO2 % 21.0 Specimen Drawn By (Blood Gas) Seun thurman rn Urine Color Light-yellow (Yellow) Urine Clarity Clear (Clear) Urine pH 5.5 (5.0-9.0) Urine Specific [place] 1.037 (1.001-1.035) Urine Protein Negative (Negative) Urine Ketones Negative (Negative) Urine Blood Negative /uL (Negative) Urine Nitrite Negative (Negative) Urine Bilirubin Negative (Negative) Urine Urobilinogen Normal mg/dL (Negative) Urine Leukocyte Esterase Negative /uL (Negative) Urine RBC None seen /hpf (0 - 4) Urine Microscopic WBC 2 /HPF (0-5) Urine Squamous Epithelial Cells None seen /hpf (<5) Urine Bacteria None seen /hpf (None Seen) Urine Hyaline Casts Few /lpf (0 - 2) Urine Glucose 4+ mg/dL (Normal) Urine Opiates Screen Neg (NEGATIVE) Urine Fentanyl Screen Neg (NEGATIVE) Urine Barbiturates Screen Neg (NEGATIVE) Urine Phencyclidine Screen Neg (NEGATIVE) Urine Amphetamines Screen Pos (NEGATIVE) Urine Benzodiazepines Screen Neg (NEGATIVE) Urine Cocaine Screen Neg (NEGATIVE) Urine Cannabinoids Screen Neg (NEGATIVE) Bedside Glucose 238 mg/dl (70-106) Vitals Vital Signs Date Time Temp Pulse Resp B/P (MAP) Pulse Ox O2 Delivery O2 Flow Rate FiO2 12/18/24 08:30 14 Room Air* 0 21 12/17/24 16:17 86 113/79 (90) 99 12/17/24 08:00 97.7 97.7 Current medications Current Medications Medications Dose Ordered Sig/Roberto Route Start Time Stop Time Status Last Admin Dose Admin Diagnostic Test (Pha) 1 strip IQ4HR 12/17/24 08:00 12/17/24 16:17 1 STRIP Insulin Human Regular IQ4HR SC 12/17/24 08:00 12/17/24 08:53 12 UNITS Dextrose 50 ml UD PRN IV 12/17/24 05:30 Sodium Chloride 1,000 ml @ 120 mls/hr Q8H20M IV 12/17/24 05:30 12/17/24 05:34 120 MLS/HR Acetaminophen/ Hydrocodone Bitart 1 tab Q4HP PRN PO 12/17/24 05:30 12/18/24 08:57 1 TAB Ondansetron HCl 4 mg Q4HP PRN IV 12/17/24 05:30 Docusate Sodium 100 mg BIDPRN PRN PO 12/17/24 05:30 Acetaminophen 650 mg Q6HP PRN PO 12/17/24 05:30 Nitroglycerin 0.4 mg Q5MINP PRN SL 12/17/24 05:30 Morphine Sulfate 2 mg Q30M PRN IV 12/17/24 05:30 Thiamine HCl 100 mg DAILY IV 12/18/24 10:00 Lorazepam 1 mg Q6HP PRN IV 12/17/24 12:15 PSYCHIATRY CONSULTATION INITIAL EVALUATION REASON FOR CONSULT: AMS HPI: 54yo W, unknown history, BIBA after patient bystanders dialed 911 given patient was erratic, yelling, disorganized, in grocery store parking lot. Per primary team RN, pt has continued to be erratic, declining most care, yelling, cursing, will not meaningfully engage. Work up is notable for UDs + amphetamines, hyperglycemia, A1c over 11.0. On attempt to interview patient, she is not cooperative, says outright she is not going speak. When asked questions says thats none of your business. She then makes taunting noises. She says she has somewhere to go if discharged, but will not say where. She declines given any personal contacts, says Im not given you any phone numbers. In between, she does babble, fairly incoherently. Patient will not comment on specific symptoms when asked. PSYCHIATRIC HISTORY: Unable to obtain additional information. No additional history in EMR. SUBSTANCE USE: UDS + meth RELEVANT MEDICAL HISTORY: Diabetes, A1c over 11.0 SOCIAL HISTORY: Unknown ALLERGIES: Per EMR, PCN MENTAL STATUS EXAMINATION: The patient is a 54-year-old woman, disheveled, wearing only underwear and an open hospital gown, exposing herself. She is uncooperative, oppositional, and intermittently yelling or making taunting noises. Eye contact is fleeting, and engagement is minimal. Speech is loud, pressured at times, and largely [id number], consisting of disorganized, incoherent utterances. Mood cannot be reliably assessed; affect is labile and irritable. Thought process appears disorganized and tangential, with loosening of associations. Thought content cannot be fully evaluated due to poor cooperation, though no overt delusions or hallucinations are clearly elicited. She does not endorse suicidal or homicidal ideation, though reliability is poor. There is no apparent orientation to situation, and she refuses to answer orientation questions. Insight and judgment are poor. Attention and concentration are impaired. Psychomotor activity is increased, with intermittent pacing and gestural agitation. DIFFERENTIAL DIAGNOSIS: Substance-Induced Psychotic Disorder (Methamphetamine-Induced Psychosis) Primary Psychotic Disorder (Schizophrenia Spectrum Disorder or Schizoaffective Disorder) Delirium secondary to medical condition (e.g., hyperglycemia, metabolic disturbance) Bipolar I Disorder, manic episode with psychotic features Psychosis due to general medical condition (e.g., endocrinopathy, infection, metabolic derangement) ASSESSMENT: This is a 54-year-old woman with poorly controlled diabetes and positive urine toxicology for amphetamines, presenting with acute agitation, disorganization, and uncooperative behavior. 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 However, the possibility of a primary psychotic disorder or psychosis secondary to a medical condition (notably uncontrolled hyperglycemia) cannot be excluded at this time, as her disorganization and irritability may be multifactorial. Given her limited participation, poor insight, and impaired judgment, she is currently unable to meaningfully engage in care or provide a safe discharge plan. Her behavioral dysregulation appears to exceed expected intoxication effec ts alone, though she may still be in the acute phase of methamphetamine intoxication or withdrawal, contributing to her presentation. The plan will include pharmacologic management for agitation and psychosis while allowing time for metabolic stabilization and substance clearance. RECOMMENDATIONS: 1. Legal - The patient does not currently meet criteria for 5150 solely based on observed behavior but warrants continued observation. - If after 24 hours of medical stabilization she remains disorganized, unable to care for herself, or continues to exhibit psychotic symptoms, psychiatry should be re-consulted to evaluate for 5150 hold and transfer to inpatient psychiatry. 2. Disposition: - Continue medical management on the primary service with close observation for safety. - Allow at least 24 hours for reconstitution from methamphetamine effects before reassessing psychiatric status. 3. Medications: - Start Haldol 5 mg PO BID for psychosis and behavioral agitation. - Benadryl 25 mg PO daily and 50 mg QHS for sedation and to mitigate extrapyramidal side effects. - Consider PRN benzodiazepine (e.g., lorazepam 12 mg PO/IM) for severe jese tation not responsive to Haldol. If patient refuses oral medications, Haldol 5 mg IM or IV can be administered with Ativan 2 mg and Benadryl 50 mg 4. Medical Considerations: - Continue to treat underlying medical conditions, including hyperglycemia and any metabolic abnormalities. - Reassess glucose, electrolytes, and renal function. - Rule out infectious or metabolic contributors to altered mental status. 5. Other / Follow-Up: - Maintain a low-stimulation environment and ensure safety precautions. - Limit staff interactions to essential contacts to reduce agitation. - Reassess mental status and capacity once medically stable and detoxified. - If psychotic symptoms persist beyond 24 hours, or patient remains unable to provide self-care, reconsult psychiatry for possible 5150 hold and inpatient transfer for further stabilization and diagnostic clarification. ASIA MURRIETA MD Dec 18, 2024 12:18
[2024-12-18] MEDS: OLANZapine 5 MG TAB PO ONE (12:23)
[2024-12-18] MEDS ORDERED: HALOPERIDOL LACTATE 5 MG/ML INJ VIAL IM PRN (13:45)
[2024-12-19] MEDS ORDERED: OLANZapine 5 MG TAB PO SCH (10:00)
--- NOTE | 2024-12-19 13:23 | DVHDS ---
DATE OF DISCHARGE: 12/18/2024 The patient eloped on 12/18/2024. The patient is a 54-year-old lady, who was admitted after she was found screaming and having erratic behavior in the parking lot. HOSPITAL COURSE: The patient was noted to have elevated blood sugars of 555 with an A1c of 11.2. The patient had a CT of the head that showed no acute intracranial abnormality. The patient's tox screen was positive for amphetamines. The patient's hep panel was negative. The patient remained noncompliant in the hospital and abusive to the staff. She eloped on 12/18/2024. FINAL DIAGNOSES: * Encephalopathy likely toxic metabolic. * Drug abuse with amphetamines. * Uncontrolled diabetes mellitus. * Likely schizophrenia. * Noncompliance. MD SRIKANTH Heard/SHANTA TID: [id number] RECEIPT: [id number]
== END 2024-12-18 15:00 | disposition left against medical advice (07) | DRG 92 ==
LOC: EDBD 02:19 → ER 02:19 → OVERFLOW 05:17 → TELE-WESTW 16:39 → WEST WING 12-18 11:02 → EAST 12-18 13:13
PROVIDERS: ADMIT Internal Medicine; ATTEND Internal Medicine
DX: G92.8 Other toxic encephalopathy (principal); E87.1 Hypo-osmolality and hyponatremia; E11.65 Type 2 diabetes mellitus with hyperglycemia; F20.9 Schizophrenia, unspecified; F15.129 Other stimulant abuse with intoxication, unspecified; Z88.0 Allergy status to penicillin; Z91.199 Patient's noncompliance with other medical treatment and regimen due to unspecified reason
CPT/HCPCS: 36415; 36600; 70450; 73110; 80053; 80074; 80307; 80320; 81001; 82805; 82962; 83036; 83605; 83690; 83735; 83880; 85025; 87081; 96361; 96374; 96375; G0378; J1815

== ENCOUNTER → 2024-12-20 06:23 | Emergency (ER) | payer MEDICARE, MEDICAID | END | disposition left against medical advice (07) | LOC: ER 06:23 | DX: M79.671 Pain in right foot (principal); Z53.21 Procedure and treatment not carried out due to patient leaving prior to being seen by health care provider ==